=== PATIENT | male | born 1960 | race Caucasian/White ===

== ENCOUNTER → 2016-11-13 | Outpatient (CLI) | payer OTHER ==
--- NOTE | 2016-11-13 12:36 | EXERCISE STRESS ECHO ---
*NOTICE TO RECEIVING DEMOCRAT AGENCY This information is strictly Confidential and protected under [place] law. [place] law prohibits you from making any further disclosure of this information unless further disclosure is expressly permitted by the written consent of the person to whom it pertains or is authorized by law. A general authorization for the release of medical or other information is not sufficient for this purpose. Hospital accepts no responsibility if the information is made available to any other person, INCLUDING THE PATIENT. Interpretation Summary * Name: VICENTE RICCI [id number] Study Date: 11/13/2016 09:49 AM BP: 124/72 mmHg * Patient Location: [facility], [place], [facility] HR: 75 * : 1960 (M/d/yyyy) Gender: Male Height: 69 in * Age: 56 yrs Ethnicity: [place] Weight: 170 lb * Ordering Physician: Sunny Kolb * Referring Physician: Sunny Kolb * Performed By: Tegan Muniz RDCS * * Reason For Study: Chest pressure, palpitations * BSA: 1.9 m2 * -- Conclusions -- * 1. Normal stress echocardiogram at 5.4 METS and a peak heart rate of 83% maximum predicted. * 2. No exercise-induced chest pain. * 3. No EKG changes. * 4. Baseline echocardiogram notes normal left ventricular systolic function and mild left ventricular hypertrophy. Procedure Details * ECHOEX, CPT #[id number] * ECHO DOPPLER, CPT #[id number] * ECHO COLOR FLOW, CPT #[id number] Left Ventricle * The left ventricle is normal in size. * There is mild concentric left ventricular hypertrophy. * Ejection Fraction = 60-65%. * Left ventricular systolic function is normal. * Resting wall motion: Normal. Stress wall motion: Appropriate increase in Left ventricular systolic function and decrease in cavity size. No stress induced segmental wall motion abnormalities. Right Ventricle * The right ventricle is normal size. * The right ventricular systolic function is normal as assessed by tricuspid annular plane systolic excursion (TAPSE) (normal >1.5 cm). Atria * The left atrium is mildly dilated. * The right atrium is borderline dilated. * There is no evidence of atrial septal defect, but resolution does not allow assessment for a patent foramen ovale. Mitral Valve * The mitral valve anatomy is normal. * There is no mitral valve stenosis. * Significant mitral regurgitation is absent. Tricuspid Valve * The tricuspid valve anatomy is normal. * There is no tricuspid stenosis. * Significant tricuspid regurgitation is absent. Aortic Valve * The aortic valve is trileaflet. * The aortic valve opens well. * No hemodynamically significant valvular aortic stenosis. * No aortic regurgitation is present. Pulmonic Valve * The pulmonary valve is inadequately visualized, but the Doppler data is adequate for interpretation. * Trace pulmonic valvular regurgitation. Great Vessels * The aortic root is normal size. * Mildly dilated ascending aorta. Pericardium * There is no pericardial effusion. Stress Parameters * Normal baseline electrocardiogram. * Stress ECG: No ST changes. No arrhythmias. * The stress portion of this study was personally supervised by the undersigned interpreting physician. * Rest heart rate was '75' BPM. * Rest blood pressure was '124/72' * Maximum heart rate achieved was 136 bpm. * Maximum heart rate was 83 % of maximum age-predicted heart rate. * Maximum blood pressure was '190/58' * Total exercise time was '3:43' * Maximum exercise MET level achieved was '5.40' METS * Maximum treadmill speed was '2.50' miles per hour. * Maximum treadmill elevation was '12.00'% grade. * Exercise was terminated due to 'patient fatigue' MMode 2D Measurements and Calculations IVSd 1.1 cm LVIDd 4.2 cm LVIDs 2.8 cm LVPWd 0.86 cm IVS/LVPW 1.2 FS 33.4 % EDV(Teich) 79.1 ml ESV(Teich) 29.7 ml EF(Teich) 62.4 % EDV(cubed) 74.7 ml ESV(cubed) 22.1 ml EF(cubed) 70.4 % LV mass(C)d 129.2 grams LV mass(C)dI 67.0 grams/m\S\2 SV(Teich) 49.4 ml SI(Teich) 25.6 ml/m\S\2 SV(cubed) 52.6 ml SI(cubed) 27.3 ml/m\S\2 Ao root diam 3.4 cm Ao root area 9.3 cm\S\2 ACS 2.1 cm LA dimension 3.1 cm asc Aorta Diam 3.5 cm LA/Ao 0.91 LVOT diam 2.0 cm LVOT area 3.2 cm\S\2 LVAd ap4 23.7 cm\S\2 LVLd ap4 8.5 cm EDV(MOD-sp4) 56.3 ml EDV(sp4-el) 56.0 ml LVAs ap4 12.3 cm\S\2 LVLs ap4 6.5 cm ESV(MOD-sp4) 21.4 ml ESV(sp4-el) 19.8 ml EF(MOD-sp4) 62.0 % EF(sp4-el) 64.7 % LVAd ap2 22.8 cm\S\2 LVLd ap2 8.2 cm EDV(MOD-sp2) 53.5 ml EDV(sp2-el) 54.0 ml LVAs ap2 11.4 cm\S\2 LVLs ap2 5.5 cm ESV(MOD-sp2) 19.5 ml ESV(sp2-el) 19.8 ml EF(MOD-sp2) 63.5 % EF(sp2-el) 63.4 % LVLd %diff -3.88 % EDV(MOD-bp) 56.1 ml LVLs %diff -17.02 % ESV(MOD-bp) 21.7 ml EF(MOD-bp) 61.4 % SV(MOD-sp4) 34.9 ml SI(MOD-sp4) 18.1 ml/m\S\2 SV(MOD-sp2) 33.9 ml SI(MOD-sp2) 17.6 ml/m\S\2 SV(MOD-bp) 34.4 ml SI(MOD-bp) 17.9 ml/m\S\2 SV(sp4-el) 36.3 ml SI(sp4-el) 18.8 ml/m\S\2 SV(sp2-el) 34.2 ml SI(sp2-el) 17.8 ml/m\S\2 Doppler Measurements and Calculations MV E max jasson 71.3 cm/sec MV A max jasson 65.0 cm/sec MV E/A 1.1 MV dec time 0.24 sec Ao V2 max 97.0 cm/sec Ao max PG 3.8 mmHg Ao max PG (full) 0.88 mmHg JAZLYN(V,A) 2.8 cm\S\2 JAZLYN(V,D) 2.8 cm\S\2 LV V1 max PG 2.9 mmHg LV V1 max 84.9 cm/sec PA V2 max 95.0 cm/sec PA max PG 3.6 mmHg PA acc slope 534.6 cm/sec\S\2 PA acc time 0.15 sec TR max jasson 79.5 cm/sec PA pr(Accel) 12.5 mmHg
== END ==
LOC: C.CPL 09:33
PROVIDERS: ATTEND Family Medicine
DX: R00.2 Palpitations (principal); R55 Syncope and collapse